=== PATIENT | female | born 1945 ===

== ENCOUNTER → 2017-05-15 | Outpatient (CLI) | payer OTHER | END | disposition home or self-care (01) | LOC: LAB 06:00 → CIR.AMB 09:37 → EDSTATUS 17:18 | DX: M25.562 Pain in left knee (principal); D68.8 Other specified coagulation defects; I10 Essential (primary) hypertension; Z01.810 Encounter for preprocedural cardiovascular examination; Z01.812 Encounter for preprocedural laboratory examination ==